=== PATIENT | female | born 1985 ===

== ENCOUNTER 2017-08-20 12:07 | Emergency (ER) | payer OTHER ==
[2017-08-20 13:22] VITALS: BMI 23.2
[2017-08-20 13:46] LABS: SQUAMOUS EPITHIAL 1 /hpf (0-5); URINE BACTERIA RARE (<OCC); URINE BILIRUBIN NEGATIVE (NEGATIVE); URINE BLOOD NEGATIVE (NEGATIVE); URINE CLARITY SLIGHTY-CLOUDY (Clear); URINE COLOR YELLOW (YELLOW); URINE GLUCOSE (UA) NEG (Normal); URINE LEUKOCYTE ESTERASE NEG Leu/uL (Negative); URINE NITRATE NEGATIVE (NEGATIVE); URINE PROTEIN NEGATIVE (NEGATIVE); URINE UROBILINOGEN 0.2-1.0 mg/dL (0.2-1.0)
[2017-08-20 18:35] VITALS: BP 113/76; PULSE 93; O2SAT 100
--- NOTE | 2017-08-23 09:40 | OBHP ---
Datetime: 08/20/2017 13:35 IP Adm Impression: , intrauterine ; No Active Labor IP Admit Plan: Observation/Evaluation; Discharge home Admit Comment, IP Provider: IUP at 33 wks presents here today c/o pelvic discomfort. She is Para 2 w ith Prior C sections X2. Denies any VB or LOF. She has a h/o deliveries X3 and has been havin vinnie Joya Q weekly. PNC with [facility] at [place]. Denies urinary symptoms. TOCO: Occasional FHR- Category 1, Cx- 0/0/-3 Assessment: IUP at 33 weeks Maternal Discomform No evidence of labor UA- Plan: Labor instructions given to the patient D/C Home F/U with OB doctor tommorrow for OB care. Extremities - PN: Normal Abdomen - PN: Normal Back - PN: Normal Lungs - PN: Normal Heart - PN: Normal Neurologic - PN: Normal General - PN: Normal FHR - Baseline A Provider: 130 Membranes, Provider: Intact Comments, ACOG Physical Exam: Abd: Soft, NT, BS- present UT- Soft Gestation - Est Wks by US: 33.0 EGA AdmitDate IP: 33.1 Vital Signs Provider: Reviewed IP Chief Complaint: Maternal discomfort NICHD Variability Prov Fetus A: Moderate 6-25bpm NICHD Accel Fetus A IP Provider: 15X15 FHR Category Provider Fetus A: Category I NICHD Decel Fetus A IP Provider: None Dilatation, Provider: 0 Effacement, Provider: 0 Station, Provider: -3
== END 2017-08-20 14:10 | disposition home or self-care (01) ==
LOC: H.EROB2 12:07
DX: O26.93 Pregnancy related conditions, unspecified, third trimester (principal); R10.2 Pelvic and perineal pain; Z3A.33 33 weeks gestation of pregnancy

== ENCOUNTER 2017-08-26 09:08 | Inpatient (IN) | payer OTHER ==
[2017-08-26 13:04] VITALS: BMI 24.0
--- NOTE | 2017-08-26 15:36 | US ---
PROCEDURE: Biophysical profile HISTORY: leakage of vaginal fluid COMPARISON: None available. TECHNIQUE: Standard protocol for this study/examination. FINDINGS: FINDINGS: Biophysical profile score 8/8 Based on the followin. breathing movements: 2/2 2. Gross body movement: 2/2 3. tone: 2/2 4. Qualitative amniotic fluid index: 2/2 Cephalic presentation. Posterior Placenta. No evidence of abruption or previa Gestational age derived from LMP 34 weeks. MASHA 10/07/2017 Amniotic fluid index 20.81 cm Gestational age based on head circumference 30.56 cm 34 weeks. Gestational age based on femur length 6.68 cm 34 weeks 3 days. Cardiac rate 129 beats per minute. IMPRESSION: Biophysical profile score 8/8 Live intrauterine gestation 34 weeks 2 days reflecting concordance with at derived from the LMP 834 weeks. Amniotic fluid index 20.81 cm
[2017-08-26] MEDS: Lactated Ringer's 1,000 ML IV SCH (16:50)
[2017-08-26 18:34] LABS: SQUAMOUS EPITHIAL 5 /hpf (0-5); URINE BACTERIA RARE (<OCC); URINE BILIRUBIN NEGATIVE (NEGATIVE); URINE BLOOD NEGATIVE (NEGATIVE); URINE CLARITY CLOUDY (Clear); URINE COLOR YELLOW (YELLOW); URINE GLUCOSE (UA) NEG (Normal); URINE LEUKOCYTE ESTERASE TRACE Leu/uL (Negative); URINE NITRATE NEGATIVE (NEGATIVE); URINE PROTEIN NEGATIVE (NEGATIVE); URINE UROBILINOGEN 0.2-1.0 mg/dL (0.2-1.0)
[2017-08-26] MEDS ORDERED: Betamethasone Soluspan 30 mg/5mL Inj Susp IM ONE (19:10)
[2017-08-26] MEDS ORDERED: Magnesium Sul 40GM/1L SW 40 GM/1,000 ML ML IV ONE ×3 (19:19→19:57)
[2017-08-26] MEDS ORDERED: AMPicillin 2 GM in Sodium Chloride 0.9% 100 ML IVPB SCH (19:30)
[2017-08-26] MEDS ORDERED: Magnesium Sulfate 4 gm/100 ml 4 GM/100 ML BAG IV ONE (19:32)
[2017-08-26 20:13] LABS: BASO % 0.1 % (0.0-2.0); EOS # 0.1 K/uL (0.0-0.7); EOS % 0.7 % (0.0-4.0); HEMOGLOBIN 11.2 g/dL (12.0-16.0); LYMPH # 1.6 K/uL (1.0-4.3); LYMPH % 21.6 % (20.0-40.0); MEAN CELL VOLUME 90.4 fl (81.0-99.0); MEAN CORPUSCULAR HEMOGLOBIN 29.6 pg (27.0-31.0); MEAN CORPUSCULAR HGB CONC 32.7 g/dL (33.0-37.0); MEAN PLATELET VOLUME 10.4 fl (7.2-11.7); MONO # 0.5 K/uL (0.0-0.8); NEUT # 5.4 K/uL (1.8-7.0); NEUT % 70.6 % (50.0-75.0); NRBC % 0.1 % (0.0-0.0); RBC 3.78 Mil/uL (3.80-5.20); RED CELL DISTRIBUTION WIDTH 14.2 % (11.5-14.5); WHITE BLOOD COUNT 7.6 K/uL (4.8-10.8)
[2017-08-26 23:50] VITALS: O2SAT 99
--- NOTE | 2017-08-26 23:53 | OBADHP ---
Datetime: 08/26/2017 18:51 Admit Comment, IP Provider: Pt is a with IUP at 34 wks presents here today complaining of l eakage of small amount of fluid. Denies any VB or LOF. She has a h/o deliveries X3 and has b een having Mahnaz Q weekly. PNC with [facility] at [place]. PE: Pt is comfortable. Pelvic Exam: Fingertip, no pooling of fluid on speculum, Nitrazine test negative FHR: 144, reactive Assessment: IUP at 34 wks presents with hx of leakage of fluid. No signs of active labor. Plan: Observation. Monitor maternal vitals signs. Continuous monitoring. BPP to asesss amnio tic fluid index. Discussed case with OB Attending, Dr. South Garcia, PGY1 Addendum: I saw and examined patient up presentation and follow-up. After observation had OB ED, patient wit h continued contractions no cervical dilation. No evidence of active labor at this time. I discussed plan with MFM. As per MFM recommendation, plan to admit patient for observation, start IV magnesium s ulfate for tocolysis, IV antibiotics, and rescue dose of steroids. Discussed plan with patient and al l patient questions answered. Maternal well-being and well-being reassuring at this time. Vital Signs Provider: Reviewed; Within Normal Limits IP Chief Complaint: Uterine contractions; Suspected ruptured membranes EGA AdmitDate IP: 34.0 IP Adm Impression: , intrauterine IP Admit Plan: Observation/Evaluation Datetime: 08/20/2017 13:35 Extremities - PN: Normal Abdomen - PN: Normal Back - PN: Normal Lungs - PN: Normal Heart - PN: Normal Neurologic - PN: Normal General - PN: Normal FHR - Baseline A Provider: 130 Membranes, Provider: Intact Comments, ACOG Physical Exam: Abd: Soft, NT, BS- present UT- Soft Gestation - Est Wks by US: 33.0 NICHD Variability Prov Fetus A: Moderate 6-25bpm NICHD Accel Fetus A IP Provider: 15X15 FHR Category Provider Fetus A: Category I NICHD Decel Fetus A IP Provider: None Dilatation, Provider: 0 Effacement, Provider: 0 Station, Provider: -3
[2017-08-27] MEDS: AMPicillin 1 GM in Sodium Chloride 0.9% 100 ML IVPB SCH ×3 (00:25→08:09)
[2017-08-27] MEDS: Lactated Ringer's 1,000 ML IV SCH (10:09)
--- NOTE | 2017-08-27 10:27 | OBHP ---
Datetime: 08/26/2017 18:51 IP Adm Impression: , intrauterine IP Admit Plan: Observation/Evaluation Admit Comment, IP Provider: Pt is a with IUP at 34 wks presents here today complaining of l eakage of small amount of fluid. Denies any VB or LOF. She has a h/o deliveries X3 and has b een having Wolverine Q weekly. PNC with [facility] at [place]. PE: Pt is comfortable. Pelvic Exam: Fingertip, no pooling of fluid on speculum, Nitrazine test negative FHR: 144, reactive Assessment: IUP at 34 wks presents with hx of leakage of fluid. No signs of active labor. Plan: Observation. Monitor maternal vitals signs. Continuous monitoring. BPP to asesss amnio tic fluid index. Discussed case with OB Attending, Dr. South Garcia, PGY1 Addendum: I saw and examined patient up presentation and follow-up. After observation had OB ED, patient wit h continued contractions no cervical dilation. No evidence of active labor at this time. I discussed plan with MFM. As per MFM recommendation, plan to admit patient for observation, start IV magnesium s ulfate for tocolysis, IV antibiotics, and rescue dose of steroids. Discussed plan with patient and al cindy patient questions answered. Maternal well-being and well-being reassuring at this time. EGA AdmitDate IP: 34.0 Vital Signs Provider: Reviewed; Within Normal Limits IP Chief Complaint: Uterine contractions; Suspected ruptured membranes
[2017-08-27] MEDS ORDERED: ceFAZolin IV 2 gm in Dextrose 2 GM/50 ML BAG IVPB ONE (11:00)
[2017-08-27] MEDS ORDERED: Morphine 1 mg/ml preservative-free Inj(Duramorph) ONE (11:26)
[2017-08-27] MEDS ORDERED: ePHEDrine 50 mg/ml Inj ONE (11:39)
[2017-08-27] MEDS ORDERED: Oxytocin 10 Units/ml Inj ONE ×2 (11:53→12:35)
[2017-08-27] MEDS ORDERED: Cellulose Hemostat 2X3 Sheet ONE (12:06)
[2017-08-27] MEDS ORDERED: Propofol 10 mg/ml Inj (20 ML) ONE (12:12)
[2017-08-27] MEDS ORDERED: Oxycodone/Acetaminophen 5/325 mg Tab PO PRN (12:36)
[2017-08-27] MEDS ORDERED: Oxytocin 30 UNITS in Sodium Chloride 0.9% 500 ML IV SCH ×2 (12:45→16:13)
[2017-08-27] MEDS ORDERED: Morphine 1 mg/ml preservative-free Inj(Duramorph) IT ONE (13:10)
[2017-08-27] MEDS ORDERED: DiphenhydrAMINE 50 mg/ml Inj IVP PRN ×2 (13:12→16:13)
--- NOTE | 2017-08-27 15:02 | OP ---
PROCEDURE DATE: PREOPERATIVE DIAGNOSES: Intrauterine at 34 weeks, uterine contractions, nonreassuring heart tones, category 2 remote from delivery.Previous x2, painful uterine contractions PROCEDURE: Repeat delivery with bilateral tubal ligation SURGEON: Boaz Acuna MD PERFORMANCE TEST ARCHITECT: Dr. Samuel Dia, he was helpful in taking care of the patient, helped to clear the exposure, obtain hemostasis, helpful in delivering the and closure of the patient. Procedure would not have been possible without his assistance. TYPE OF ANESTHESIA: Spinal. ANESTHESIA ADMINISTERED BY: Dr. Neri. ESTIMATED BLOOD LOSS: 800 mL. URINE OUTPUT: Boucher catheter put out approximately 200 mL of clear urine. IV FLUID INTAKE: The patient received approximately 1800 mL of D5 LR intraoperatively. OPERATIVE FINDINGS: Baby girl, vertex presentation. Apgars 8 and 8. Weighing 2860 grams. Normal uterus, tubes, and ovaries. The surgery was a repeat low flap transverse section by Pfannenstiel skin incision with tubal ligation. DESCRIPTION OF PROCEDURE: After informed consent was obtained, the patient was taken to the operating room where she was given spinal anesthesia. The patient was then prepped and draped in the normal sterile fashion with a leftward tilt. A Pfannenstiel skin incision was then made with a scalpel and carried down to the underlying layer of fascia. The fascia was nicked in the midline. The fascial incision was then extended laterally with the Bovie. The superior aspect of the fascial incision was then grasped with Shanelle clamps, elevated up and the rectus muscles were dissected off using both sharp and blunt dissection. Attention was then turned to the inferior aspect of the fascial incision, which in similar fashion, was grasped with Shanelle clamps, elevated up, and the rectus muscles were dissected off using both sharp and blunt dissection. The rectus muscles were then in the midline. The peritoneum was identified and entered sharply with the Metzenbaum scissors. The peritoneal incision was then extended superiorly and inferiorly with good visualization of the bladder. The bladder blade was then inserted. The vesicouterine and peritoneum were identified and entered sharply with the Metzenbaum scissors. The incision was then extended laterally and the bladder flap was created digitally. The bladder blade was then re-adjusted. A low transverse incision was then made with a scalpel. The uterine incision was then extended laterally via blunt dissection. The 's head was then delivered atraumatically. The nose and mouth were suctioned with DeLee suction trap. The cord was clamped and cut and the infant was handed off to waiting pediatricians. The placenta was removed manually. The uterus was then exteriorized and cleared of all clots and debris. The uterine incision was repaired with 0-Vicryl in a running lock fashion. A second layer of the same suture was used to obtain excellent hemostasis. Attention was then turned to the right fallopian tube. It was grasped with a Stephon elevated up and it was suture ligated. An additional free tie was placed underneath the ligature. The knuckle of tube was then excised with the Metzenbaum scissors and the stumps were cauterized for hemostasis. A similar procedure was performed on the left. The specimens were sent to Pathology. The uterus was then returned to the abdomen. The abdomen was copiously irrigated. The irrigant was removed with a suction device. The gutters were then cleared of all clots and debris. The incision was examined and noted to be hemostatic. The Interceed was placed on the anterior surface of the uterus. The muscles reapproximately with 0-Vicryl in an interrupted fashion. The fascia was closed with 0-Vicryl in a running fashion. The skin was closed with 4-0 on a Mark needle. All sponge, lap, needle, and instrument counts were correct x2. Boaz Acuna MD JESIKA
[2017-08-27] MEDS ORDERED: Betamethasone Soluspan 30 mg/5mL Inj Susp IM ONE (20:05)
[2017-08-28 07:25] LABS: MEAN CELL VOLUME 89.6 fl (81.0-99.0); MEAN CORPUSCULAR HEMOGLOBIN 31.3 pg (27.0-31.0); MEAN CORPUSCULAR HGB CONC 34.9 g/dL (33.0-37.0); RBC 2.67 Mil/uL (3.80-5.20); RED CELL DISTRIBUTION WIDTH 13.7 % (11.5-14.5); WHITE BLOOD COUNT 7.5 K/uL (4.8-10.8)
[2017-08-28 07:34] LABS: HEMOGLOBIN 8.3 g/dL (12.0-16.0)
[2017-08-28] MEDS: Oxycodone/Acetaminophen 5/325 mg Tab PO PRN ×2 (10:31→19:27)
[2017-08-29 07:25] LABS: HEMOGLOBIN 7.9 g/dL (12.0-16.0); MEAN CELL VOLUME 89.6 fl (81.0-99.0); MEAN CORPUSCULAR HEMOGLOBIN 30.3 pg (27.0-31.0); MEAN CORPUSCULAR HGB CONC 33.8 g/dL (33.0-37.0); RBC 2.62 Mil/uL (3.80-5.20); RED CELL DISTRIBUTION WIDTH 13.7 % (11.5-14.5)
--- NOTE | 2017-08-29 07:56 | OBPPN ---
Datetime: 08/29/2017 07:50 PP Pain Prov: Within normal limits PP Nausea Prov: Denies PP Flatus Prov: Yes PP BM Prov: No PP Abdomen/Uterus Prov: Normal PP Lochia Prov: Normal PP Extremities Prov: Normal PP C/S Incision Prov: Normal PP Progress Prov: Normal PP Comments Phys Exam Prov: Incision: intact w/ steri strips PP Impression Prov: Normal progression PP Plan Prov: Discharge PP Progress Note Prov: POD 2 s/p c/s at 34 weeks for low baseline of heart Stanislaw was tras[facility]ferred to [facility] Pt wants to be discharged home today Vital Signs Provider PP: Reviewed; Within Normal Limits Datetime: 08/28/2017 08:44 PP Breasts Prov: Not Done PP Heart Prov: Normal PP Lungs Prov: Normal PP Vulva/Perineum Prov: Not Done PP CVA Tenderness Prov: Not Done
[2017-08-29] MEDS: Oxycodone/Acetaminophen 5/325 mg Tab PO PRN (08:03)
[2017-08-29 19:52] VITALS: BP 111/73; PULSE 71; RESP 20; TEMP 98.4
== END 2017-08-29 12:48 | disposition home or self-care (01) | DRG 651 ==
LOC: H.EROB2 09:08 → H.L&D 09:19 → H.EROB2 21:07 → H.OB/GYN 08-27 16:13
PROVIDERS: ADMIT Obstetrics & Gynecology; ATTEND Obstetrics & Gynecology
PROC: 4A1HXCZ Monitoring of Products of Conception, Cardiac Rate, External Approach (ICD-10-PCS; 2017-08-26)
PROC: 10D00Z1 Extraction of Products of Conception, Low, Open Approach (ICD-10-PCS; principal; 2017-08-27)
PROC: 0UB70ZZ Excision of Bilateral Fallopian Tubes, Open Approach (ICD-10-PCS; 2017-08-27)
DX: O60.14X0 Preterm labor third trimester with preterm delivery third trimester, not applicable or unspecified (principal); O34.211 Maternal care for low transverse scar from previous cesarean delivery; O76 Abnormality in fetal heart rate and rhythm complicating labor and delivery; Z3A.34 34 weeks gestation of pregnancy; Z37.0 Single live birth; Z30.2 Encounter for sterilization; Z91.010 Allergy to peanuts